=== PATIENT | female | born 1965 | race Caucasian/White ===

== ENCOUNTER → 2024-04-02 12:01 | Outpatient (REF) | payer OTHER, SELFPAY | LOC: HWWDC 12:01 | PROVIDERS: ATTENDING PHYSICIAN Internal Medicine | DX: Z12.31 Encounter for screening mammogram for malignant neoplasm of breast (principal) | CPT/HCPCS: 77063; 77067 ==

== ENCOUNTER 2024-07-15 06:23 | Day surgery (SDC) | payer OTHER, SELFPAY | END 2024-07-15 09:38 | disposition home or self-care (01) | LOC: GI 06:23 | PROVIDERS: ATTENDING PHYSICIAN Internal Medicine Gastroenterology; FAMILY PHYSICIAN Internal Medicine | DX: Z12.11 Encounter for screening for malignant neoplasm of colon (principal); D12.4 Benign neoplasm of descending colon; K63.3 Ulcer of intestine; Z83.719 Family history of colon polyps, unspecified | CPT/HCPCS: 45385; 45380; 88305 ==

== ENCOUNTER → 2024-10-28 16:18 | Outpatient (REF) | payer OTHER, SELFPAY | LOC: RAD 16:18 | PROVIDERS: ATTENDING PHYSICIAN Internal Medicine Gastroenterology; FAMILY PHYSICIAN Internal Medicine | DX: R10.32 Left lower quadrant pain (principal); K59.09 Other constipation; K52.9 Noninfective gastroenteritis and colitis, unspecified | CPT/HCPCS: 74174; Q9967 ==

== ENCOUNTER → 2024-12-11 09:43 | Outpatient (REF) | payer OTHER, SELFPAY | LOC: HWRAD 09:43 | PROVIDERS: ATTENDING PHYSICIAN Obstetrics & Gynecology; FAMILY PHYSICIAN Internal Medicine | DX: N83.202 Unspecified ovarian cyst, left side (principal) | CPT/HCPCS: 76830; 76856 ==

== ENCOUNTER 2025-03-19 06:24 | Day surgery (SDC) | payer OTHER, SELFPAY ==
[2025-03-05 11:02] LABS: Hematocrit 41.9 % (37.0-47.0); Hemoglobin 14.7 g/dL (12.0-16.0); Mean Corp Hgb Conc. 35.1 g/dL (33.0-37.0); Mean Corpuscular Volume 89.1 fL (81.0-99.0); Nucleated Red Blood Cells % 0 %; Platelet Count 392 10^3/uL (130-400); Red Cell Dist. Width 12.4 % (11.5-14.5)
[2025-03-05 11:17] LABS: Blood Urea Nitrogen 19 mg/dl (7-17); Calcium 10.0 mg/dl (8.4-10.2); Carbon Dioxide 30 mmol/L (22-30); Chloride 103 mmol/L (98-107); Glucose 95 mg/dl (70-99); Potassium 3.5 mmol/L (3.5-5.1); Sodium 140 mmol/L (135-145); eGFR > 60.00
[2025-03-05 14:17] VITALS: BMI 30.4
[2025-03-19] VITALS (7 sets, daily range): BP systolic 105–119; BP diastolic 65–75; BMI 30.4
[2025-03-19] MEDS: TYLENOL 650 MG PO (17:33)
== END 2025-03-19 18:00 | disposition home or self-care (01) ==
LOC: SDS 06:24
PROVIDERS: ATTENDING PHYSICIAN Obstetrics & Gynecology; FAMILY PHYSICIAN Internal Medicine
DX: N85.8 Other specified noninflammatory disorders of uterus (principal); R10.20 Pelvic and perineal pain unspecified side; R93.5 Abnormal findings on diagnostic imaging of other abdominal regions, including retroperitoneum
CPT/HCPCS: 58558; 36415; 80048; 85025; 86850; 86900; 86901; 88305; 93005

== ENCOUNTER → 2025-04-07 12:02 | Outpatient (REF) | payer OTHER, SELFPAY | LOC: PAVMRI 12:02 | PROVIDERS: FAMILY PHYSICIAN Internal Medicine | DX: R74.8 Abnormal levels of other serum enzymes (principal) | CPT/HCPCS: 74183; A9575 ==